=== PATIENT | male | born 1995 | race Caucasian/White ===

== ENCOUNTER 2020-01-21 00:47 | Outpatient (CLI) | payer OTHER | END 2020-01-21 00:48 | disposition critical access hospital (66) | LOC: EMS 00:47 | PROVIDERS: ATTEND Surgery | DX: R07.9 Chest pain, unspecified (principal) | CPT/HCPCS: A0425; A0429 ==

== ENCOUNTER 2020-01-21 01:06 | Emergency (ER) | payer OTHER ==
[2020-01-21] MEDS ORDERED: MAG HYDROX/AL HYDROX/SIMETH 30 ML UDC PO STA (01:11)
[2020-01-21] MEDS ORDERED: LIDOCAINE VISCOUS 2% 15 ML UDC MM STA (01:11)
--- NOTE | 2020-01-21 01:21 | ED Physician Documentation ---
PD HPI CHEST PAIN - Stated complaint Stated Complaint: CP - Chief complaint Chief Complaint: Cardiac - History obtained from History obtained from: Patient - History of Present Illness Timing - onset: Enter time (2299) Timing - onset during: Rest Timing - duration: Hours Timing - details: Abrupt onset, Still present Quality: Sharp, Pain, Other (burning) Location: Substernal Improved by: Antacids (minimal) Associated symptoms: Diaphoresis, Nausea. No: Shortness of air Similar symptoms before: Diagnosis (gerd) Recently seen: Not recently seen - Additional information Additional information: 24-year-old male developed sharp substernal burning chest pain this evening about 2300. He has had similar incident previously was diagnosed with GERD and placed on cimetidine. He has been taking half a pill of cimetadine daily. He initially was taking this twice per day or 3 times per day. He denies any use of ibuprofen alcohol microwave foods or spicy foods. He does take excedrin but rarely. He has not been otherwise ill. Review of Systems Constitutional: denies: Fever Eyes: denies: Decreased vision Ears: denies: Ear pain Nose: denies: Congestion Throat: denies: Sore throat Cardiac: reports: Chest pain / pressure. denies: Palpitations, Pedal edema, Calf pain Respiratory: denies: Dyspnea, Cough GI: reports: Nausea. denies: Abdominal Pain, Vomiting : denies: Dysuria, Frequency PD PAST MEDICAL HISTORY - Past Medical History Past Medical History: Yes GI: GERD Psych: Depression, Anxiety - Past Surgical History Past Surgical History: No - Present Medications Home Medications: Ambulatory Orders Medication Instructions Recorded Confirmed Cimetidine 400 mg PO BID 01/21/20 01/21/20 Cyclobenzaprine [Flexeril] 10 mg PO TID 01/21/20 01/21/20 Famotidine [Acid-Pep] 20 mg PO BID #40 tablet 01/21/20 Sertraline [Zoloft] 50 mg PO DAILY 01/21/20 01/21/20 Sucralfate [Carafate] 1 gm PO ACHS #60 tablet 01/21/20 - Allergies Allergies/Adverse Reactions: Allergies Allergy/AdvReac Type Severity Reaction Status Date / Time No Known Drug Allergies Allergy Verified 01/21/20 01:13 - Social History Does the pt smoke?: No Smoking Status: Never smoker Does the pt drink ETOH?: Yes Does the pt have substance abuse?: No - Immunizations Immunizations are current?: Yes - POLST Patient has POLST: No PD ED PE NORMAL - Vitals Vital signs reviewed: Yes (hypertensive mild ) - General General: Alert and oriented X 3, No acute distress, Well developed/nourished - HEENT HEENT: Atraumatic, PERRL, EOMI - Neck Neck: Supple, no meningeal sign, No bony TTP - Cardiac Cardiac: RRR, No murmur - Respiratory Respiratory: No respiratory distress, Clear bilaterally - Abdomen Abdomen: Normal bowel sounds, Soft, Non tender, Non distended, No organomegaly - Back Back: No CVA TTP, No spinal TTP - Derm Derm: Normal color, Warm and dry, No rash - Extremities Extremities: No deformity, No edema - Neuro Neuro: Alert and oriented X 3, rehabilitation liaison 2-12 intact, No motor deficit, No sensory deficit, Normal speech Eye Opening: Spontaneous Motor: Obeys Commands Verbal: Oriented GCS Score: 15 - Psych Psych: Normal mood, Normal affect Results - Vitals Vitals: Vital Signs - 24 hr 01/21/20 01/21/20 01/21/20 01:07 01:41 02:16 Temperature 37.0 C 36.1 C L Heart Rate 50 L 62 58 L Respiratory 14 13 20 Rate Blood Pressure 128/92 H 128/86 H 122/72 O2 Saturation 96 99 98 Oxygen O2 Source Room air - EKG (time done) 0109 Rhythm: Other (Sinus arrhythmia) Intervals: Prolonged NV, Wide QRS Ischemia: Normal ST segments Compare to prior EKG: Old EKG unavailable Computer interpretation: Agree with computer - Labs Labs: Laboratory Tests 01/21/20 01/21/20 01/21/20 01:25 01:25 01:25 WBC 7.4 RBC 5.06 Hgb 14.8 Hct 43.3 MCV 85.6 MCH 29.2 MCHC 34.2 RDW 12.8 Plt Count 251 MPV 8.2 Neut # (Auto) 4.8 Lymph # (Auto) 2.0 Power # (Auto) 0.5 Eos # (Auto) 0.1 Baso # (Auto) 0.0 Absolute Nucleated RBC 0.00 Nucleated RBC % 0.0 Sodium 134 L Potassium 3.6 Chloride 99 L Carbon Dioxide 25 Anion Gap 10.0 BUN 22 H Creatinine 0.9 Estimated GFR (MDRD) 102 Glucose 103 H Calcium 9.3 Total Bilirubin 0.6 AST 28 ALT 21 Alkaline Phosphatase 61 Troponin I High Sens 5.2 Total Protein 7.2 Albumin 4.6 Globulin 2.6 Albumin/Globulin Ratio 1.8 Lipase 24 - Rads (name of study) chest Radiology: Prelim report reviewed (Impression: No active cardiopulmonary disease demonstrated.), EMP read indepedently, See rad report PD MEDICAL DECISION MAKING - ED course Complexity details: reviewed results, re-evaluated patient, considered differential, d/w patient ED course: 24-year-old male previously diagnosed with GERD appears to have inadequate treatment with tiny amounts of cimetidine infrequently. Today he has symptoms acutely in the emergency department he is administered a GI cocktail consisting of viscous lidocaine and Mylanta with prompt relief of his symptoms.. He is subsequently administered Protonix orally as well as Carafate he has further improvement with this. Departure - Departure Disposition: 01 Home, Self Care Clinical Impression: Gastroesophageal reflux disease Qualifiers: Esophagitis presence: esophagitis presence not specified Qualified Code(s): K21.9 - Gastro-esophageal reflux disease without esophagitis Condition: Stable Instructions: ED GERD, ED PUD Vs Gastritis Follow-Up: JEANNINE CHARLES ARNP [Primary Care Provider] - Prescriptions: Famotidine [Acid-Pep] 20 mg PO BID #40 tablet Sucralfate [Carafate] 1 gm PO ACHS #60 tablet Discharge Date/Time: 01/21/20 02:32
[2020-01-21 01:29] LABS: BASOPHILS % (AUTO) 0.4 %; EOSINOPHILS # (AUTO) 0.1 10^3/uL (0.0-0.7); EOSINOPHILS % (AUTO) 1.1 %; HGB - HEMOGLOBIN 14.8 g/dL (14.0-18.0); LYMPHOCYTES % (AUTO) 26.6 %; MEAN CORPUSCULAR HEMOGLOBIN 29.2 pg (27.0-31.0); MEAN CORPUSCULAR HGB CONC 34.2 g/dL (32.0-36.0); MEAN CORPUSCULAR VOLUME 85.6 fL (80.0-94.0); MEAN PLATELET VOLUME 8.2 fL (7.4-11.4); MONOCYTES # (AUTO) 0.5 10^3/uL (0.0-1.0); NEUTROPHILS # (AUTO) 4.8 10^3/uL (1.5-6.6); NEUTROPHILS % (AUTO) 64.5 %; PLT - PLATELET COUNT 251 10^3/uL (130-450); RED BLOOD COUNT 5.06 10^6/uL (4.70-6.10); RED CELL DISTRIBUTION WIDTH 12.8 % (12.0-15.0); WHITE BLOOD COUNT 7.4 x10^3/uL (4.8-10.8)
[2020-01-21] MEDS ORDERED: PANTOPRAZOLE 40 MG TABLET PO STA (01:32)
[2020-01-21] MEDS ORDERED: SUCRALFATE 1 GM/10 ML UDC PO STA (01:32)
[2020-01-21 02:14] LABS: ALBUMIN 4.6 g/dL (3.2-5.5); ALBUMIN/GLOBULIN RATIO 1.8 (1.0-2.2); BILIRUBIN,TOTAL 0.6 mg/dL (0.2-1.0); CALCIUM 9.3 mg/dL (8.5-10.3); CREATININE 0.9 mg/dL (0.6-1.2); TOTAL PROTEIN 7.2 g/dL (6.7-8.2)
[2020-01-21 02:18] VITALS: BP 122/72
--- NOTE | 2020-01-21 11:46 | XRAY Report ---
PROCEDURE: Chest 1 View X-Ray INDICATIONS: chest pain TECHNIQUE: One view of the chest was acquired. COMPARISON: None FINDINGS: Surgical changes and devices: None. Lungs and pleura: No pleural effusions or pneumothorax. Lungs are clear. Mediastinum: Mediastinal contours appear normal. Heart size is normal. Bones and chest wall: The site of the pain is marked with a BB marker. On this single view chest x-r ay, no focal abnormalities are seen at this site. No bony abnormalities or soft tissue abnormalities are seen on this plain film. IMPRESSION: Portable chest within normal limits for age. Note: No significant discrepancy from the preliminary report. Reviewed by: Gasper Porter MD on 01/21/2020 10:44 AM [facility] Approved by: Gasper Porter MD on 01/21/2020 10:44 AM [facility] Station ID: [id number]
== END 2020-01-21 02:32 | disposition home or self-care (01) ==
LOC: EDBD → ED 01:06
DX: K21.9 Gastro-esophageal reflux disease without esophagitis (principal)
CPT/HCPCS: 36415; 71045; 80053; 83690; 84484; 85025; 93005; 99284; A9270